=== PATIENT | male | born 1960 | race Caucasian/White ===

== ENCOUNTER 2017-03-11 06:41 | Day surgery (SDC) | payer BC ==
[2017-03-11] MEDS ORDERED: Lactated Ringers 1,000 ML IV SCH (06:45)
[2017-03-11] MEDS ORDERED: Propofol 200 MG/20 ML SDV IV ONE (08:00)
--- NOTE | 2017-03-11 08:28 | PCM.HP ---
H&P History of Present Illness - General Date of Service: 03/11/17 (Seen prior to procedure) Admit Problem/Dx: Admission Diagnosis/Problem Admission Diagnosis/Problem Colonoscopy Source of Information: Patient, Old Records History Limitations: Reports: No Limitations - History of Present Illness Initial Comments - Free Text/Narative: Here fof colonoscopy for Hx polyps in 01/2014 - Related Data Allergies/Adverse Reactions: Allergies Allergy/AdvReac Type Severity Reaction Status Date / Time No Known Allergies Allergy Verified 03/11/17 07:06 Home Medications: Home Meds Calcium Carbonate [Calcium] 500 mg PO DAILY 01/21/14 [History] Fenofibrate,Micronized [Lofibra] 134 mg PO DAILY 01/21/14 [History] Lisinopril 10 mg PO DAILY 01/21/14 [History] NIFEdipine [Adalat cc] 30 mg PO DAILY 01/21/14 [History] Warfarin [Coumadin] 2.5 mg PO ASDIRECTED 01/21/14 [History] atorvaSTATin [Lipitor] 20 mg PO BEDTIME 01/21/14 [History] levETIRAcetam [Keppra XR] 1,500 mg PO BID 01/21/14 [History] lamoTRIgine [Lamictal] 50 mg PO BID 03/08/17 [History] Enoxaparin [Lovenox] 80 mg SUBCUT DAILY 03/11/17 [History] Past Medical History HEENT History: Reports: Impaired Vision Cardiovascular History: Reports: High Cholesterol Respiratory History: Reports: None Gastrointestinal History: Reports: Colon Polyp Genitourinary History: Reports: None Musculoskeletal History: Reports: None Neurological History: Reports: CVA, Seizure Endocrine/Metabolic History: Reports: None Hematologic History: Reports: Other (See Below) Other Hematologic History: ANTIPHOSPHOLIPID ANTIBODY SYNDROME Immunologic History: Reports: None Oncologic (Cancer) History: Reports: None Dermatologic History: Reports: None - Past Surgical History Head Surgeries/Procedures: Reports: None HEENT Surgical History: Reports: None Cardiovascular Surgical History: Reports: None Respiratory Surgical History: Reports: None GI Surgical History: Reports: Colonoscopy Endocrine Surgical History: Reports: None Social & Family History - Tobacco Use Smoking Status *Q: Never Smoker Used Tobacco, but Quit: Yes Month Tobacco Last Used: 2009 - Alcohol Use Days Per Week of Alcohol Use: 1 Number of Drinks Per Day: 3 Total Drinks Per Week: 3 - Recreational Drug Use Recreational Drug Use: No Drug Use in Last 12 Months: No H&P Review of Systems - Review of Systems: Review Of Systems: ROS reveals no pertinent complaints other than HPI. Exam - Exam Exam: See Below - Vital Signs Vital Signs: Last Vital Signs Temp 97.4 F 03/11/17 07:10 Pulse 62 03/11/17 07:10 Resp 16 03/11/17 07:10 BP 110/74 03/11/17 07:10 Pulse Ox 95 03/11/17 07:22 Weight: 95.254 kg - Exam General: Alert, Oriented Lungs: Clear to Auscultation, Normal Respiratory Effort Cardiovascular: Regular Rate, Regular Rhythm *Q Meaningful Use (ADM) - VTE *Q VTE Criteria *Q: - Stroke *Q Stroke Criteria *Q: - AMI *Q AMI Criteria *Q: Problem List Initiated/Reviewed/Updated: Yes Orders Last 24hrs: Active Orders 24 hr Category Date Time Status Patient Status [ADT] Routine ADT 03/11/17 06:45 Ordered Patient to Empty Bladder [RC] ASDIRECTED Care 03/11/17 06:45 Active Verify Patient Consent Obtain [RC] ASDIRECTED Care 03/11/17 06:45 Active Nothing Per Oral Diet [DIET] Diet 03/10/17 Dinner Ordered Lactated Ringers [Ringers, Lactated] 1,000 ml Med 03/11/17 06:45 Active IV ASDIRECTED Peripheral IV Insertion Adult [OM.PC] Routine Oth 03/11/17 06:45 Ordered Medication Orders Lactated Ringer's (Ringers, Lactated) 1,000 mls @ 125 mls/hr IV ASDIRECTED BEATRICE Assessment/Plan Comment:: Hx Colon Polyps and Diverticulosis Ok to proceed with colonoscopy
--- NOTE | 2017-03-11 08:29 | PCM.OPNOTE ---
- General Post-Op/Procedure Note Date of Surgery/Procedure: 03/11/17 Operative Procedure(s): Colonoscopy Findings: L Tics Pre Op Diagnosis: Hx Colon Polyps Post-Op Diagnosis: Same Anesthesia Technique: MAC Primary Surgeon: Aguila Wayne Anesthesia Provider: Sam Cornell EBL in mLs: 0 Complications: None Condition: Good
[2017-03-11 09:32] VITALS: BP 123/75
--- NOTE | 2017-03-11 13:42 | OR ---
DATE OF OPERATION: 03/11/2017 SURGEON: Aguila Wayne MD PREOPERATIVE DIAGNOSES: 1. History of colon polyps. 2. Diverticulosis. POSTOPERATIVE DIAGNOSIS: Diverticulosis. PROCEDURE PERFORMED: Colonoscopy. ANESTHESIA: IV sedation. DESCRIPTION OF PROCEDURE: The patient was brought to the procedure room, where he was placed on his left side and IV sedation administered. Digital rectal exam was performed, which was normal. The colonoscope was inserted and advanced to the level of the cecum without difficulty. Cecal position was confirmed by identifying the appendiceal lumen and ileocecal valve. Prep was fair with some thick liquid according much to the lining that was partially irrigated. Surfaces were well enough visualized to see any polyps larger than 5 mm. Upon withdrawing, the scope, the ascending, transverse, and descending colon were normal in appearance. Few diverticula were seen in the descending colon. Multiple diverticula were seen in the sigmoid colon. Rectum was normal and retroflexion was normal. Air was removed and the scope withdrawn. The patient tolerated the procedure well and returned to recovery in stable condition. Recommend surveillance colonoscopy again in five years. /[id number] RL/DAMIAN
== END 2017-03-11 09:20 | disposition home or self-care (01) ==
LOC: FB.SDS 06:41
PROVIDERS: ATTEND Surgery
DX: Z12.11 Encounter for screening for malignant neoplasm of colon (principal); Z86.010 Personal history of colon polyps; K57.30 Diverticulosis of large intestine without perforation or abscess without bleeding; E78.2 Mixed hyperlipidemia; I10 Essential (primary) hypertension; Z79.01 Long term (current) use of anticoagulants; Z79.899 Other long term (current) drug therapy
CPT/HCPCS: 45378; J7120; J2704

== ENCOUNTER 2018-11-01 05:29 | Emergency (ER) | payer BC ==
--- NOTE | 2018-11-01 08:13 | EDM.PDOC ---
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 His last seizure and only seizure was once in 2010. At approximately 5:30 this morning he experienced an unwitnessed seizure. He had awakened, went down the stairs, sat on a kitchen chair was about to get up to perform his usual morning physical workout and as he stood up he fell to the floor and laid on the floor for what he thinks was 5 minutes. He had an unwitnessed seizure and notehe bit his tongue has superficial laceration to his upper nasal labial lip, not involving the vermilion border, and he has a contusion left anterior supra brow region. This mild headache and denies neck ache - Related Data Allergies Allergy/AdvReac Type Severity Reaction Status Date / Time No Known Allergies Allergy Verified 11/01/18 07:17 Home Meds: Home Meds Calcium Carbonate [Calcium] 500 mg PO DAILY 01/21/14 [History] Fenofibrate,Micronized [Lofibra] 134 mg PO DAILY 01/21/14 [History] Lisinopril 10 mg PO BEDTIME 01/21/14 [History] NIFEdipine [Adalat cc] 30 mg PO DAILY 01/21/14 [History] Warfarin [Coumadin] 2.5 mg PO ASDIRECTED 01/21/14 [History] atorvaSTATin [Lipitor] 20 mg PO BEDTIME 01/21/14 [History] levETIRAcetam [Keppra XR] 1,500 mg PO BID 01/21/14 [History] lamoTRIgine [Lamictal] 50 mg PO BID 03/08/17 [History] Warfarin [Coumadin] 1.25 mg PO ASDIRECTED 11/01/18 [History] levETIRAcetam [Keppra] 250 mg PO DAILY #30 tablet 11/01/18 [Rx] Past Medical History HEENT History: Reports: Impaired Vision Cardiovascular History: Reports: High Cholesterol Respiratory History: Reports: None Gastrointestinal History: Reports: Colon Polyp Genitourinary History: Reports: None Musculoskeletal History: Reports: None Neurological History: Reports: CVA, Seizure Endocrine/Metabolic History: Reports: None Hematologic History: Reports: Other (See Below) Other Hematologic History: ANTIPHOSPHOLIPID ANTIBODY SYNDROME Immunologic History: Reports: None Oncologic (Cancer) History: Reports: None Dermatologic History: Reports: None - Past Surgical History Head Surgeries/Procedures: Reports: None HEENT Surgical History: Reports: None Cardiovascular Surgical History: Reports: None Respiratory Surgical History: Reports: None GI Surgical History: Reports: Colonoscopy Endocrine Surgical History: Reports: None ED ROS GENERAL - Review of Systems Review Of Systems: ROS reveals no pertinent complaints other than HPI. ED EXAM, GENERAL - Physical Exam Exam: See Below Free Text/Narrative:: Healthy-looking mesomorphic man in no acute distress was accompanied by his . Alert oriented 3 interactive no compromise remote or recent memory. Exam Limited By: No Limitations General Appearance: Alert, WD/WN, No Apparent Distress, Other (A stoic man who has a contusion his left supra medial brow region approximately 6 cm diameter slightly increased mildly tender with minimal ecchymosis no laceration. Also has a superficial non-transdermal laceration upper lip not involving the vermilion border that extends from the lower nasi to the mid distance between nose and lip.) Eye Exam: Bilateral Eye: Normal Fundi (RAFA Examination THERE IS A SUGGESTION OF EARLY CATARACTS - SLIGHT DENSITY OF THE LENSES.), Normal Inspection (Normal symmetrical bilateral pupils without nystagmus. Normal EOMs and normal conjugate gaze), PERRL Ears: Normal External Exam, Normal Canal, Hearing Grossly Normal, Normal TMs Ear Exam: Bilateral Ear: Auricle Normal, Canal Normal, TM normal Nose: Normal Inspection, Normal Mucosa, No Blood Throat/Mouth: Normal Lips, Normal Teeth, Normal Gums, Normal Oropharynx, Normal Voice, No Airway Compromise, Other (Change in of the anterior lateral tongue without intraoral laceration or blood in the mouth. No dental abnormalities noted. No movement to percussion with tongue blade. Superficial 1.5 laceration of the upper mucosal gingival labial sulcus just left of the midline. Tenderness upper lip.) Head: Atraumatic, Normocephalic Neck: Normal Inspection, Non-Tender, Full Range of Motion, Other (CT cervical spine pending. No focal tenderness in the neck of the spinous processes or the paraspinal muscles.) Respiratory/Chest: No Respiratory Distress, Lungs Clear, Normal Breath Sounds, No Accessory Muscle Use, Chest Non-Tender Cardiovascular: Normal Peripheral Pulses, Regular Rate, Rhythm, No Edema, No Gallop, No JVD, No Murmur, No Rub, Other (Orthostatic blood pressures and heart rates are stable. See nurse's entry into nursing notes) Peripheral Pulses: 1+: Radial (L), Radial (R), Dorsalis Pedis (L), Dorsalis Pedis (R) GI/Abdominal: Normal Bowel Sounds, Soft, Non-Tender, No Organomegaly, No Distention, No Abnormal Bruit, No Mass (Male) Exam: Deferred Rectal (Males) Exam: Deferred Back Exam: Normal Inspection, Full Range of Motion Extremities: Normal Inspection Neurological: Alert, Oriented, CN II-XII Intact, Normal Cognition, Normal Gait, Normal Reflexes, No Motor/Sensory Deficits, Other (No pass pointing, Romberg negative, no decreased muscle strength, no ataxia, no dizziness,) Psychiatric: Normal Affect, Normal Mood Skin Exam: Warm, Dry, Other (Superficial laceration upper lip not involving vermilion border) Lymphatic: No Adenopathy Course - Vital Signs Last Recorded V/S: Orthostatic Blood Pressure [ 106/73 Standing] Orthostatic Blood Pressure [ 109/75 Sitting] Orthostatic Blood Pressure [ 112/70 Supine] - Orders/Labs/Meds Orders: Active Orders 24 hr Category Date Time Status Cardiac Monitoring [RC] .As Directed Care 11/01/18 06:18 Active EKG Documentation Completion [RC] ASDIRECTED Care 11/01/18 06:18 Active EKG Documentation Completion [RC] ASDIRECTED Care 11/01/18 06:18 Active Head wo Cont [CT] Stat Exams 11/01/18 06:16 Taken LAMOTRIGINE (LAMICTAL), SERUM Urgent Lab 11/01/18 06:33 Received LEVETIRACETAM (KEPPRA), S Urgent Lab 11/01/18 06:33 Received EKG 12 Lead [EK] Routine Ther 11/01/18 06:18 Ordered Labs: Laboratory Tests 0311/01/18 11/01/18 Range/Units 06:33 06:33 06:33 WBC 5.6 (4.5-12.0) X10-3/uL RBC 5.75 (4.30-5.75) x10(6)uL Hgb 16.8 (13.5-17.8) g/dL Hct 49.7 (30.0-51.3) % MCV 86.4 (80-96) fL MCH 29.3 (27.7-33.6) pg MCHC 33.8 (32.2-35.4) g/dL RDW 12.7 (11.5-15.5) % Plt Count 125 (125-369) X10(3)uL MPV 8.5 (7.4-10.4) fL Neut % (Auto) 73.9 (46-82) % Lymph % (Auto) 16.6 (13-37) % [place] % (Auto) 8.4 (4-12) % Eos % (Auto) 1 (1.0-5.0) % Baso % (Auto) 1 (0-2) % Neut # (Auto) 4.2 (1.6-8.3) # Lymph # (Auto) 0.9 (0.6-5.0) # [place] # (Auto) 0.5 (0.0-1.3) # Eos # (Auto) 0.0 (0.0-0.8) # Baso # (Auto) 0.0 (0.0-0.2) # PT 39.0 H* (8.7-11.1) INR 4.08 H* (0.89-1.13) APTT 36.0 H (24.4-33.2) SECONDS D-Dimer, Quantitative 1.14 H (0.0-0.59) mg/LFEU Sodium 142 (135-145) mmol/L Potassium 4.2 (3.5-5.3) mmol/L Chloride 105 (100-110) mmol/L Carbon Dioxide 34 H (21-32) mmol/L BUN 26 H (7-18) mg/dL Creatinine 1.4 H (0.70-1.30) mg/dL Est Cr Clr Drug Dosing TNP Estimated GFR (MDRD) 52 L (>60) BUN/Creatinine Ratio 18.6 (9-20) Glucose 71 L (80-116) mg/dL Calcium 9.1 (8.6-10.2) mg/dL Total Bilirubin 0.6 (0.1-1.3) mg/dL AST 17 (5-25) IU/L ALT 20 (12-36) U/L Alkaline Phosphatase 65 (56-112) IU/L Troponin I (<0.017-0.056) ng/mL Total Protein 6.6 (6.0-8.0) g/dL Albumin 3.6 (3.5-5.2) g/dL Globulin 3.0 g/dL Albumin/Globulin Ratio 1.2 // Range/Units 06:33 WBC (4.5-12.0) X10-3/uL RBC (4.30-5.75) x10(6)uL Hgb (13.5-17.8) g/dL Hct (30.0-51.3) % MCV (80-96) fL MCH (27.7-33.6) pg MCHC (32.2-35.4) g/dL RDW (11.5-15.5) % Plt Count (125-369) X10(3)uL MPV (7.4-10.4) fL Neut % (Auto) (46-82) % Lymph % (Auto) (13-37) % [place] % (Auto) (4-12) % Eos % (Auto) (1.0-5.0) % Baso % (Auto) (0-2) % Neut # (Auto) (1.6-8.3) # Lymph # (Auto) (0.6-5.0) # [place] # (Auto) (0.0-1.3) # Eos # (Auto) (0.0-0.8) # Baso # (Auto) (0.0-0.2) # PT (8.7-11.1) INR (0.89-1.13) APTT (24.4-33.2) SECONDS D-Dimer, Quantitative (0.0-0.59) mg/LFEU Sodium (135-145) mmol/L Potassium (3.5-5.3) mmol/L Chloride (100-110) mmol/L Carbon Dioxide (21-32) mmol/L BUN (7-18) mg/dL Creatinine (0.70-1.30) mg/dL Est Cr Clr Drug Dosing Estimated GFR (MDRD) (>60) BUN/Creatinine Ratio (9-20) Glucose (80-116) mg/dL Calcium (8.6-10.2) mg/dL Total Bilirubin (0.1-1.3) mg/dL AST (5-25) IU/L ALT (12-36) U/L Alkaline Phosphatase (56-112) IU/L Troponin I < 0.017 L (<0.017-0.056) ng/mL Total Protein (6.0-8.0) g/dL Albumin (3.5-5.2) g/dL Globulin g/dL Albumin/Globulin Ratio - Re-Assessments/Exams Free Text/Narrative Re-Assessment/Exam: 11/01/18 08:39 I've spoken to the neurologist at a [facility] Dr. Dennis and was advised to increase the Lamictal by 25 mg per day to the already established 50 mg bid and and an extra dose of Lamictal 250 mg per day the the concurrent dose of 1500 mg bid. MRI can be performed and [place]. MRI is not emergent. MRI has been scheduled for Saturday (11/03/18) Also patient is to call his office [phone] to arrange for follow and EEG and follow up with Dr. Dennis after EEG and MRI are completed. Dante is to use Dr. Dennis's name to facilitate this EEG and also facilitate an appointment with Dr. Dennis. Dante is to inform his staff that Dr. Dennis has requested this follow-up after the EEG and MRI have been completed Departure - Departure Time of Disposition: 09:00 (CT of the neck is pending. Lengthy discussions undertaken regarding Dr. Dnenis, [facility] neurologist in consultation by phone : He suggestion completion of a nonemergent MRI, and also EEG studies before patient follows up with him. He is advised that the patient inform with the neurology product/industry consultant that Dr. Dennis wanted to follow up with him after the EEG and MRI were completed. Patient is to follow-up with his doctor next week. He needs a repeat INR Saturday and he'll need to get that done in the clinic. The elevated INR today is secondary to and Saturday's dose of 5 mg Coumadin otherwise he takes 2.5 mg daily. 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 Dr. Luong's acceptance the order for non emergent MRI to be completed on Saturday11/03/18. And Dr. Luong is committed to discuss this information about the status of patient with Dr. Holguin, the patient's doctor on Saturday. The patient needs to speak to Dr. Holguin on Saturday a so he can have his INR repeated.If he should have change in his neuro status Dante needs to return to ED the same day and repeat emergent CT need to be done to rule out post concusson intracerebral bleeding.) Disposition: Home, Self-Care 01 Condition: Good Clinical Impression: Seizure disorder, Anti-phospholipid syndrome, Accelerated essential hypertension, Anticoagulation excessive Concussion Qualifiers: Encounter type: initial encounter Loss of consciousness presence/duration: with LOC of unspecified duration Qualified Code(s): S06.0X9A - Concussion with loss of consciousness of unspecified duration, initial encounter - Discharge Information *PRESCRIPTION DRUG MONITORING PROGRAM REVIEWED*: Not Applicable *COPY OF PRESCRIPTION DRUG MONITORING REPORT IN PATIENT SHER: Not Applicable Referrals: Dickson Holguin MD [Primary Care Provider] - - My Orders Last 24 Hours: My Active Orders 11/01/18 06:16 Head wo Cont [CT] Stat 11/01/18 06:18 Cardiac Monitoring [RC] .As Directed EKG Documentation Completion [RC] ASDIRECTED EKG Documentation Completion [RC] ASDIRECTED EKG 12 Lead [EK] Routine 11/01/18 06:33 LAMOTRIGINE (LAMICTAL), SERUM Urgent LEVETIRACETAM (KEPPRA), S Urgent - Assessment/Plan Last 24 Hours: My Active Orders 11/01/18 06:16 Head wo Cont [CT] Stat 11/01/18 06:18 Cardiac Monitoring [RC] .As Directed EKG Documentation Completion [RC] ASDIRECTED EKG Documentation Completion [RC] ASDIRECTED EKG 12 Lead [EK] Routine 11/01/18 06:33 LAMOTRIGINE (LAMICTAL), SERUM Urgent LEVETIRACETAM (KEPPRA), S Urgent
[2018-11-01 12:16] VITALS: BP 105/70
== END 2018-11-01 10:08 | disposition home or self-care (01) ==
LOC: FB.ED 05:29
DX: S06.0X9A Concussion with loss of consciousness of unspecified duration, initial encounter (principal); G40.909 Epilepsy, unspecified, not intractable, without status epilepticus; S01.511A Laceration without foreign body of lip, initial encounter; S00.12XA Contusion of left eyelid and periocular area, initial encounter; D68.61 Antiphospholipid syndrome; I10 Essential (primary) hypertension; E78.00 Pure hypercholesterolemia, unspecified; Z79.899 Other long term (current) drug therapy; Z79.01 Long term (current) use of anticoagulants; W18.30XA Fall on same level, unspecified, initial encounter
CPT/HCPCS: 36415; 70450; 72125; 80053; 80175; 80177; 84484; 85025; 85379; 85610; 85730; 93005; 99283-25

== ENCOUNTER 2022-02-23 08:13 | Day surgery (SDC) | payer BC ==
[2022-02-23] MEDS ORDERED: Glycopyrrolate 0.2 MG/ML 5 ML MDV IV ONE (08:14)
[2022-02-23] MEDS ORDERED: Propofol 200 MG/20 ML SDV IV ONE (08:14)
[2022-02-23] MEDS ORDERED: Sodium Chloride 0.9% 10 ML Syringe FLUSH PRN (08:15)
[2022-02-23] MEDS ORDERED: Lactated Ringers 1,000 ML IV SCH (08:15)
[2022-02-23 11:11] VITALS: BP 93/54; PULSE 71
== END 2022-02-23 11:00 | disposition home or self-care (01) ==
LOC: FB.SDS 08:13
PROVIDERS: ATTEND Surgery
DX: Z12.11 Encounter for screening for malignant neoplasm of colon (principal); I10 Essential (primary) hypertension; K57.30 Diverticulosis of large intestine without perforation or abscess without bleeding; Z86.010 Personal history of colon polyps; Z79.899 Other long term (current) drug therapy
CPT/HCPCS: 45378; J2704; J3490; J7120; 00812-QZ